=== PATIENT | female | born 1935 | race Caucasian/White ===

== ENCOUNTER → 2016-11-04 | Outpatient (CLI) | payer MEDICARE ==
--- NOTE | 2016-11-06 08:58 | MM ---
Reason for exam: screening (asymptomatic). Last mammogram was performed 8 years ago. History: Patient is postmenopausal and has history of other cancer at age 77. Took hormonal contraceptives for 4 years beginning at age 28. Took estrogen for 15 years beginning at age 54. Took progesterone for 15 years beginning at age 54. Physical Findings: A clinical breast exam by your physician is recommended on an annual basis and results should be correlated with mammographic findings. MG 3D Screening Mammo W/Cad Bilateral CC and MLO view(s) were taken. Prior study comparison: July 18, 2015, mammogram, performed at [facility]. July 13, 2014, mammogram, performed at [facility]. The breast tissue is heterogeneously dense. This may lower the sensitivity of mammography. No significant changes when compared with prior studies. ASSESSMENT: Benign, BI-RAD 2 RECOMMENDATION: Routine screening mammogram of both breasts in 1 year.
== END ==
LOC: RADMAMWWP 10:23
PROVIDERS: ATTEND Family Medicine
DX: Z12.31 Encounter for screening mammogram for malignant neoplasm of breast (principal)
CPT/HCPCS: 77063; G0202

== ENCOUNTER → 2017-02-12 | Outpatient (CLI) | payer MEDICARE ==
[2017-02-12 15:02] VITALS: BP 148/80; PULSE 69; RESP 16; TEMP 98.1
--- NOTE | 2017-02-12 15:23 | P.PN ---
Subjective This is follow-up visit for this patient with a history of severe and chronic low back pain secondary to lumbar degenerative disc diseases , lumbar spondylosis with facet arthropathy, is currently on pain medications naproxen 220 Patient denies any side effects of the medication, denies excessive drowsiness or sleepiness, denies suicidal ideation, and reports that the current pain medication is NOT helping To control the pain and improve activity of daily living Patient denies any motor or sensory deficit , patient denies any fever or night sweats, denies any change in the bowel movements or urination, patient was seen a few months ago and she was scheduled to have lumbar epidural steroid injections, but she could not schedule the procedure because of personal issues Physical Examinations : 1-Constitutiona : Cooperative , not in acute distress . 2-HEENT : nech ; supple , no Lymphadenopathy , no Thyromegaly , normal thyroid size . eyes : no ptosis , no icterus, no photophobia . ENT : normal of hearing , normal oropharynx , no Thrush . 3- Respiratory : Chest clear to auscultations Bilaterally , no wheezing , no Rhonchi . 4- Cardiovascular : regular rate and rhythem , S1 , S2 , no S3 , no S4. 5- Gastrointestinal : abdomen soft no tenderness , bowel sounds positive all four quadrents , no organomegally . 6- Genitourinary : Defferred . 7- neurologic : Cranial nerve II to XII intact , no focal neurological deffecit . 8-psychatric : alert , oriented X 3 , appropriate affect , intact judgment and insight . 9-Lymphatic : no Lymphadenopathy . 10- musculoskeltal : exams of the Lumber spine = motor strength lower extremities ,thigh and legs .5/5 deep tendon reflexes : normal Knee Jerk , normal ankle Jerk . lumber facet Loading Test negative strait leg raising test positive at 45 degree , RT ,LT , Fabere test positive RT and positive LT . Range of motion: Range of motion in flexion of the lumbar spine 45 degrees Range of motion range of motion of extension of the lumbar spine 30 Assessment and plan = - Chronic low back pain secondary to lumbar degenerative disc disease , lumbar spondylosis with facet arthropathy without myelopathy Patient could benefit from lumbar epidural steroid injections , and she like to have the procedure without any sedation - diagnoses, prognosis, and treatment options including but not limited to physical therapy, surgical interventions, interventional therapies , and medication management including narcotics and adjuvant medication were discussed with the patient and all The questions answered Objective - Vital Signs Vital signs: Vital Signs Temp 98.1 F 02/12/17 15:01 Pulse 69 02/12/17 15:01 Resp 16 02/12/17 15:01 BP 148/80 02/12/17 15:01 Pulse Ox 96 02/12/17 15:01 Intake & Output 02/11/17 02/12/17 02/12/17 18:59 06:59 18:59 Weight 72.575 kg
== END | disposition home or self-care (01) ==
LOC: PNWHC3 13:56
PROVIDERS: ATTEND Specialist
DX: M51.36 Other intervertebral disc degeneration, lumbar region (principal); M47.816 Spondylosis without myelopathy or radiculopathy, lumbar region; M46.86 Other specified inflammatory spondylopathies, lumbar region
CPT/HCPCS: 99211

== ENCOUNTER 2017-03-12 08:28 | Day surgery (SDC) | payer MEDICARE ==
[2017-03-10 09:00] VITALS: BMI 25.0
[~2017-03-12 08:28] MED LIST: LACTATED RINGERS 1,000 ML IV SCH
[2017-03-12 09:39] VITALS: RESP 18; TEMP 97.8
[2017-03-12] MEDS ORDERED: DEXAMETHASONE SOD PHOS (MDV) 100 MG/10 ML VIAL ONE (10:03)
[2017-03-12] MEDS ORDERED: IOHEXOL 180 MG/ML 1 ML ML ONE (10:03)
--- NOTE | 2017-03-12 10:25 | P.PCN ---
Date of Procedure: 03/12/17 Preoperative Diagnosis: Postoperative Diagnosis: Procedure(s) Performed: PREOPERATIVE DIAGNOSIS: 1- Lumbar Degenerative Disc Diseases 2-Lumbar spondylosis with Facet arthropathy without myelopathy POSTOPERATIVE DIAGNOSIS: 1-Lumber Degenerative Disc Diseases 2-Lumbar spondylosis with Facet arthropathy without myelopathy PROCEDURE 1. Lumbar epidural steroid injection under fluoroscopic guidance at the L5-S1 level. 2. Lumbar epidurogram. ANESTHESIA: Local with 1% lidocaine 3 ml , no IV sedations EBL: Minimal PROCEDURE INDICATION: The patient with low back pain and radiculitis symptoms unresponsive to conservative treatment. Fluoroscopy was used to optimize visualization of the needle placement and to maximize safety. PROCEDURE DESCRIPTION / TECHNIQUE: The patient was seen and identified in the preoperative area. Risks, benefits , complications including but not limited to infections ,bleeding ,allergic reaction to the medications ,nerve damage and not complete pain releife , and alternatives were discussed with the patient. The patient agreed to proceed with the procedure and signed the consent, and vital signs were stable. Patient was taken to the OR and time out was completed. The patient was placed in the prone position on procedure table and a pillow was placed under the abdomen to reduce lumbar lordosis. The lumbosacral area was prepped and draped in the usual sterile fashion. Vital signs was monitered during the entire procedure. Using anterior-posterior fluoroscopy, the L5-S1 interlaminar space was identified and the skin over this site was marked and then infiltrated with 1% lidocaine subcutaneously. Subsequently, a 20-gauge Tuohy epidural needle was inserted and advanced toward the epidural space using the ``Loss of resistance technique and guided by AP and lateral fluoroscopy. The correct needle position in the epidural space was verified with the injection of 2 mL of the water soluble contrast dye Omnipaque 180 contrast and observing an excellent epidurogram with the epidural spread of the dye, after negative aspiration for blood and CSF and in the absence of paresthesias. Again after negative aspiration, a 6 ml mixture containing 20 mg of Dexamethasone and 2 ml of preservative free Normal Saline, and 2 ml of preservative free lidocaine 1% solution was injected and a washout of epidurogram was seen. Needle was withdrawn intact, skin was cleansed, and bandages were applied. COMPLICATIONS: None DISPOSITION / PLANS: The patient was placed in a supine position and transferred to the recovery area in a stable condition for observation. There was no evidence of lower extremity motor or sensory deficit after the procedure. Patient was discharged from the recovery room after meeting discharge criteria. Home discharge instructions were given to the patient by the staff. The patient was reexamined prior to discharge. The patient will schedule a follow up in the clinic in 2-4 weeks. Implants: Indications for Procedure: Operative Findings: Description of Procedure:
[2017-03-12 10:31] VITALS: PULSE 60
--- NOTE | 2017-03-12 10:35 | FL ---
EXAMINATION TYPE: FL guided pain mgmt statistic DATE OF EXAM: 03/12/2017 HISTORY: Pain 5 SEC FL TIME, 1 IMAGE SCANNED. LUMBAR EPI FOR PAIN
[2017-03-12 10:44] VITALS: BP 144/70
== END 2017-03-12 10:57 | disposition home or self-care (01) ==
LOC: ORPAIN 08:28
PROVIDERS: ATTEND Specialist
DX: M51.16 Intervertebral disc disorders with radiculopathy, lumbar region (principal); M46.96 Unspecified inflammatory spondylopathy, lumbar region; M47.26 Other spondylosis with radiculopathy, lumbar region
CPT/HCPCS: 62323; Q9965; J1100

== ENCOUNTER → 2017-04-15 | Day surgery (SDC) | payer MEDICARE ==
[2017-04-10 12:52] VITALS: BMI 24.5
== END ==
LOC: ORPAIN 08:58
PROVIDERS: ATTEND Anesthesiology
DX: M51.36 Other intervertebral disc degeneration, lumbar region (principal)

== ENCOUNTER 2022-02-12 14:33 | Emergency (ER) | payer MEDICARE ==
[2022-02-12] MEDS ORDERED: DIPH,PERTUS(ACELL)TETVAC-LF 0.5 ML VIAL IM ONE (14:43)
[2022-02-12 14:49] VITALS: BP 140/60; PULSE 79; RESP 18; TEMP 98.1
--- NOTE | 2022-02-12 14:51 | ED ---
General Adult HPI - General Stated complaint: Fall/Head injury Time Seen by Provider: 02/12/22 14:33 Source: patient, RN notes reviewed, old records reviewed - History of Present Illness Initial comments: This is an 86-year-old female who states she was mowing the lawn and she stepped backwards and fell back and hit her head per patient denies loss of consciousness. Patient denies being on any blood thinners. Patient denies being days. Patient denies any neck pain. Patient denies any numbness weakness. She denies any extremity injury. Patient denies any back injury chest injury or abdominal injury. - Related Data Home Medications Medication Instructions Recorded Confirmed Aspirin [Adult Low Dose Aspirin EC] 81 mg PO DAILY 07/23/16 04/10/17 Calcium Citrate 250 mg PO DAILY 07/23/16 04/10/17 Folic Acid 0.8 mg PO DAILY 07/23/16 04/10/17 Ginkgo Biloba [place] Extract [Ginkgo] 60 mg PO DAILY 07/23/16 04/10/17 Multivitamins, Thera [Multivitamin] 1 tab PO DAILY 07/23/16 04/10/17 [place]ota-3 Fatty Acids [M[place]ota-3] 1,000 mg PO DAILY 07/23/16 04/10/17 Vit C/E/Zn/Coppr/Lutein/Zeaxan 1 each PO BID 07/23/16 04/10/17 [Preservision Areds 2 Softgel] Zolpidem [Ambien] 5 mg PO HS PRN 07/23/16 04/10/17 lisinopriL [Zestril] 10 mg PO DAILY 07/23/16 04/10/17 Naproxen Sodium [Aleve] 220 mg PO Q8H PRN 02/12/17 04/10/17 Allergies Allergy/AdvReac Type Severity Reaction Status Date / Time No Known Allergies Allergy Verified 02/12/22 14:50 Review of Systems ROS Statement: Those systems with pertinent positive or pertinent negative responses have been documented in the HPI. ROS Other: All systems not noted in ROS Statement are negative. 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 History of Any Multi-Drug Resistant Organisms: None Reported Past Surgical History: Joint Replacement, Orthopedic Surgery, Tonsillectomy, Tubal Ligation Additional Past Surgical History / Comment(s): PARTIAL RIGHT KNEE REPLACEMENT, Pain Clinic Procedures Past Anesthesia/Blood Transfusion Reactions: No Reported Reaction Additional Past Alcohol Use History / Comment(s): smoked from age 24 to age 52 1 ppd Past Drug Use History: None Reported - Past Family History Mother Family Medical History: No Reported History General Exam - General Exam Comments Initial Comments: GENERAL: Patient is well-developed and well-nourished. Patient is nontoxic and well- hydrated and is in no acute distress. ENT: Neck is soft and supple. No significant lymphadenopathy is noted. Oropharynx is clear. Moist mucous membranes. Neck has full range of motion without eliciting any pain. EYES: The sclera were anicteric and conjunctiva were pink and moist. Extraocular movements were intact and pupils were equal round and reactive to light. Eyelids were unremarkable. PULMONARY: Unlabored respirations. Good breath sounds bilaterally. No audible rales rhonchi or wheezing was noted. CARDIOVASCULAR: There is a regular rate and rhythm without any murmurs gallops or rubs. ABDOMEN: Soft and nontender with normal bowel sounds. SKIN: Patient has a hematoma to the occipital region of her head and there is a small puncture wound that is bleeding a little NEUROLOGIC: Patient is alert and oriented x3. Cranial nerves II through XII are grossly intact. Motor and sensory are also intact. Normal speech, volume and content. Symmetrical smile. MUSCULOSKELETAL: Normal extremities with adequate strength and full range of motion. LYMPHATICS: No significant lymphadenopathy is noted PSYCHIATRIC: Normal psychiatric evaluation. Course Vital Signs 02/12/22 14:45 Temperature 98.1 F Pulse Rate 79 Respiratory 18 Rate Blood Pressure 140/60 O2 Sat by Pulse 94 L Oximetry Medical Decision Making - Medical Decision Making Patient received a tetanus shot in the emergency department CT of the brain and C-spine showed no acute abnormality. Patient's bleeding stopped spontaneously there was no laceration to repair. Disposition Clinical Impression: Fall, Hematoma of scalp Disposition: HOME SELF-CARE Condition: Good Instructions (If sedation given, give patient instructions): Fall Prevention for Older Adults (ED), Head Injury (ED) Is patient prescribed a controlled substance at d/c from ED?: No Referrals: Jax Gutierrez DO [Primary Care Provider] - 1-2 days Time of Disposition: 15:46
--- NOTE | 2022-02-12 15:28 | CT ---
EXAMINATION TYPE: CT brain lillian coppola DATE OF EXAM: 02/12/2022 COMPARISON: None available HISTORY: Trauma CT DLP: 1358.7 mGycm Automated exposure control for dose reduction was used. TECHNIQUE: CT scan of the head and cervical spine are performed without contrast. FINDINGS: Brain: Brain volume loss changes, likely age-related. Scattered arterial atherosclerotic calcifications. No acute intracranial hemorrhage or gross acute cortical infarct. No midline shift or herniation. Unrema rkable basal cisterns, sella and CP angles. No gross space-occupying lesion, vasogenic edema or mass effect. No gross orbital abnormality. Left parieto-occipital scalp hematoma/swelling. Right superior nasal fossa polyp/retention cyst measu ring up to 2.2 cm, please correlate clinically. Further ENT consultation can be considered. Previous paranasal sinus surgery. Clear visualized mastoid air cells. Diffuse osteopenia. Degenerative changes of the TMJs. No definite acute calvarial bone fracture identified. Cervical spine: Reversal of normal cervical curvature. Anterolisthesis of C3 over C4. Partial fusion of C4 and C5 mia tebrae. Cystic changes are seen at the inferior aspect of the atlantoodontoid articulation. No defini te vertebral body collapse or acute displaced fracture. Unremarkable atlantoaxial and atlantooccipita l articulations. Degenerative changes of the cervical spine with multilevel opposing endplate osteophytosis, degenerat ed discs and uncovertebral osteoarthropathy, most evident at C4-5, C5-6 and C6-7 levels. Multilevel f acet facet arthropathy is also noted. Bilateral C3-4, left C4-5, bilateral C5-C6 and left C6-7 neural foraminal stenosis. Multilevel central spinal canal stenosis is also noted most evident at C5-6 and C6-7 levels. Slightly prominent right lingual tonsils, please correlate clinically. Underlying lesion cannot be ex cluded. Small heterogeneous thyroid gland, please correlate with thyroid function tests and thyroid u ltrasound. Scattered subcentimeter bilateral cervical lymph nodes, nonspecific. Scattered arterial at herosclerotic calcifications. Suspected previous gastric pull-up surgery. Thick scarring with tiny ca lcification is seen in the right lung apex. No paraspinal lesion. IMPRESSION: No acute intracranial posttraumatic sequela or acute calvarial bone fracture. Left parieto-occipital scalp swelling/hematoma. Other incidental findings and recommendations as described above. No evidence for acute traumatic bony injury of the cervical spine. Degenerative changes of the cervic al spine with multiple incidental findings/recommendations as detailed above.
== END 2022-02-12 15:59 | disposition home or self-care (01) ==
LOC: EC 14:33
DX: S00.03XA Contusion of scalp, initial encounter (principal); M19.90 Unspecified osteoarthritis, unspecified site; Z87.891 Personal history of nicotine dependence; Z79.82 Long term (current) use of aspirin; Z79.899 Other long term (current) drug therapy; Z23 Encounter for immunization; W18.30XA Fall on same level, unspecified, initial encounter
CPT/HCPCS: 70450; 72125; 90471; 90715; 99284